=== PATIENT | male | born 1960 | race African-American/Black ===

== ENCOUNTER 2016-10-05 18:32 | Emergency (ER) | payer SELFPAY ==
[~2016-10-05] VITALS: Ht 177.8 cm; Wt 85.0 kg
[2016-10-05 18:32] VITALS: BP 108/73; PULSE 96; RESP 16; TEMP 97.8; O2SAT 98
[~2016-10-05 18:32] MED LIST: TOBRA.3%O OS; TYLE3 PO; Z.0.NO CURRENT MEDS
--- NOTE | 2016-10-05 18:48 | PD ---
HPI Chief Complaint: Back/ Neck Pain or Injury Time Seen by Provider: 18:48 Travel History International Travel<30 days: No Contact w/Intl Traveler<30days: No Traveled to known affect area: No History of Present Illness HPI 55-year-old male presents to the emergency department for evaluation of lower back pain radiating to bilateral legs that began this morning when he woke up. Patient denies any specific injury or trauma to his lower back. 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 States that he could've injured his back doing that at work last night. States that the pain is sharp and throbbing. Pain is aggravated with movement. Denies any alleviating factors. He has not taken anything for symptoms so far. Denies any fever, chills, nausea, vomiting, numbness or tingling, weakness, saddle anesthesia, bowel or bladder incontinence. He has had similar pain in the past. No other complaints. [facility] Past Medical History Medical History: Denies Significant Hx Diminished Hearing: No Social History Alcohol Use: Yes ( HOLIDAY) Tobacco Use: Yes (04/03 PPD) Substance Use: No Allergies-Medications (Allergen,Severity, Reaction): Coded Allergies: No Known Allergies (Verified , 10/05/16) Reported Meds & Prescriptions Reported Meds & Active Scripts Active No Active Prescriptions or Reported Medications Review of Systems Except as stated in HPI: all other systems reviewed are Neg Physical Exam Narrative GENERAL: Well-nourished and well-developed pleasant patient in no acute distress who is nontoxic appearing. SKIN: Warm and dry. HEAD: Normocephalic and atraumatic. EYES: No injection, drainage, or hyphema noted. PERRLA. EOMI. ENT: No nasal drainage noted. Oropharynx is clear. NECK: Supple and the trachea is midline. CARDIOVASCULAR: Regular rate and rhythm. RESPIRATORY: Breath sounds are equal bilaterally with no accessory muscle use, wheezing, rhonchi, or crackles. MUSCULOSKELETAL: No obvious deformities, swelling, cyanosis, or ecchymosis is present throughout the upper and lower extremities. Patient has full range of motion without any signs of neurovascular compromise. Strength 5/5 upper and lower extremities equal bilaterally. SLR negative. BACK: Mild bilateral paraspinal muscle tenderness to palpation. No obvious deformities, midline bony point tenderness, or crepitus noted throughout the thoracic and lumbar vertebrae. NEUROLOGICAL: Awake, alert, and oriented. Normal speech and gait. Cranial nerves are grossly intact. Data Data Last Documented VS Vital Signs Date Time Temp Pulse Resp B/P Pulse Ox O2 Delivery O2 Flow Rate FiO2 10/05/16 18:32 97.8 96 16 108/73 98 Orders Ketorolac Inj (Toradol Inj) (10/05/16 19:00) Acetamin-Hydrocod 325-5 Mg ([place] 5-325 (10/05/16 19:00) [facility] Medical Decision Making Medical Screen Exam Complete: Yes Emergency Medical Condition: Yes Differential Diagnosis Muscle strain versus muscle spasm versus discogenic pain versus sciatica versus lumbar radiculopathy Narrative Course 55-year-old male presents to the emergency room for evaluation of low back pain for 1 day. Patient is afebrile, vital signs are stable. No red flag signs or symptoms to indicate need for emergent imaging. Patient likely has a muscle strain secondary to lifting and bending. Patient is administered Toradol 60 mg IM and Lortab 5325 milligrams orally here in the emergency department. He'll be discharged with naproxen and Flexeril. Advised to follow-up as an outpatient with his PCP. Patient verbalizes understanding and agreement with treatment plan. Diagnosis Primary Impression: Acute low back pain Qualified Code: M54.5 - Acute bilateral low back pain, with sciatica presence unspecified Referrals: Primary Care Physician Patient Instructions: Acute Low Back Pain (ED), General Instructions Additional Instructions: Apply ice or heat to help alleviate symptoms. Perform gentle stretches. Take medications as prescribed with food and a full glass of water. Take Flexeril with alcohol or driving. Follow-up with your Primary Care Physician. Return to the ED for any acute worsening of symptoms. Med/Other Pt SpecificInfo: Prescription(s) given Scripts No Active Prescriptions or Reported Meds Disposition: 01 DISCHARGE HOME Condition: Radha Looney Oct 05, 2016 18:48
[2016-10-05] MEDS ORDERED: ACETAMINOPHEN/HYDROcodone 325 MG/5 MG TAB PO ONE (19:00)
[2016-10-05] MEDS ORDERED: KETOROLAC TROMETHAMINE 60 MG/2 ML (IM) VIAL IM ONE (19:00)
[2016-10-05] MEDS ORDERED: CYCL1TAB29 PO (19:01)
[2016-10-05] MEDS ORDERED: NAPR500T PO (19:01)
== END 2016-10-05 19:51 | disposition home or self-care (01) ==
LOC: NEPD 18:32
DX: M54.40 Lumbago with sciatica, unspecified side (principal); F17.210 Nicotine dependence, cigarettes, uncomplicated
CPT/HCPCS: 96372; 99284; J1885

== ENCOUNTER 2016-10-17 12:08 | Emergency (ER) | payer SELFPAY ==
[~2016-10-17] VITALS: Ht 177.8 cm; Wt 80.0 kg
[~2016-10-17 12:08] MED LIST changes: +CYCL1TAB29 PO; +NAPR500T PO; -TOBRA.3%O OS; -TYLE3 PO; -Z.0.NO CURRENT MEDS
[2016-10-17 12:18] VITALS: BP 110/76; PULSE 88; RESP 20; TEMP 98.7; O2SAT 97
--- NOTE | 2016-10-17 12:45 | PD ---
Physical Exam Time Seen by Provider: 12:44 Narrative 55 y/o male stepped in a hole and is having back/neck pain and bilateral leg pain. Vital signs reviewed. Seen at triage desk. Awaiting bed placement. Data Data Last Documented VS Vital Signs Date Time Temp Pulse Resp B/P Pulse Ox O2 Delivery O2 Flow Rate FiO2 10/17/16 12:18 98.7 88 20 110/76 97 Room Air MDM Medical Record Reviewed: Yes Supervised Visit with JENS: Michael Chatterjee Oct 17, 2016 12:45
--- NOTE | 2016-10-17 12:56 | PD ---
HPI . pain all over his body Chief Complaint: Back/ Neck Pain or Injury Time Seen by Provider: 12:56 Travel History International Travel<30 days: No Contact w/Intl Traveler<30days: No Traveled to known affect area: No History of Present Illness HPI 55-year-old male here with complaints of pain all over his body. Patient says that he was walking when he stepped inside of a sink hole and now reports pain in his lower back, neck and all over his body. He rates the pain as severe and says he needs relief immediately. He denies any head injury or loss of consciousness. He did not actually fall and only stepped awkwardly. He does have history of back issues, but this accident has caused his pain to worsen. PFSH Past Medical History Diminished Hearing: No Social History Alcohol Use: Yes () Tobacco Use: Yes (04/03 PPD) Substance Use: No Allergies-Medications (Allergen,Severity, Reaction): Coded Allergies: No Known Allergies (Verified , 10/05/16) Reported Meds & Prescriptions Reported Meds & Active Scripts Active Ibuprofen 800 Mg Tab 800 Mg PO TID Flexeril (Cyclobenzaprine HCl) 5 Mg Tab 5 Mg PO TID Naproxen 500 Mg Tab 500 Mg PO BID 7 Days Flexeril (Cyclobenzaprine HCl) 10 Mg Tab 10 Mg PO TID 5 Days Review of Systems General / Constitutional: No: Fever Eyes: No: Visual changes HENT: No: Headaches Cardiovascular: No: Chest Pain or Discomfort Respiratory: No: Shortness of Breath Gastrointestinal: No: Abdominal Pain Genitourinary: No: Dysuria Musculoskeletal: Positive: Pain (back/neck/all over) Skin: No Rash Neurologic: No: Weakness Psychiatric: No: Depression Endocrine: No: Polydipsia Hematologic/Lymphatic: No: Easy Bruising Physical Exam Narrative GENERAL: AAO x 3, no acute distress, Well-nourished, well-developed patient. SKIN: Warm and dry. No visible rashes or bruising. HEAD: Normocephalic and atraumatic. EYES: No scleral icterus. No injection or drainage. ENT: No nasal drainage noted. Mucous membranes pink. Airway patent. NECK: Supple, trachea midline. No JVD. CARDIOVASCULAR: Regular rate and rhythm without murmurs, gallops, or rubs. RESPIRATORY: Breath sounds equal bilaterally. No accessory muscle use. No rhonchi or rales. GASTROINTESTINAL: Abdomen soft, non-tender, nondistended. EXTREMITIES: No cyanosis or edema. ambulatory BACK: Nontender without obvious deformity. No CVA tenderness. NEURO: CN II-12 intact, market stall vendor strength normal b/l, UE and LE 5/5, no focal deficits PSYCH: AAO x 3, normal affect. Data Data Last Documented VS Vital Signs Date Time Temp Pulse Resp B/P Pulse Ox O2 Delivery O2 Flow Rate FiO2 10/17/16 12:18 98.7 88 20 110/76 97 Room Air Orders Orphenadrine Inj (Norflex Inj) (10/17/16 13:00) Ketorolac Inj (Toradol Inj) (10/17/16 13:00) MDM Medical Decision Making Medical Screen Exam Complete: Yes Emergency Medical Condition: Yes Medical Record Reviewed: Yes Differential Diagnosis acute on chronic back pain, muscle strain, malingering Narrative Course 55-year-old male here with complaints of aches and pains all over his body. I have done a complete examination and do not believe imaging is indicated. He does not meet criteria for C-spine imaging per nexus rules. I do not believe he needs imaging of his T or lumbar spine. I'll provide him with Toradol and Norflex here in the emergency department. He will need follow-up with his primary care provider. Patient tells me that he will be suing the county/city for this incident. Diagnosis Primary Impression: Acute low back pain Qualified Code: M54.5 - Acute midline low back pain without sciatica Patient Instructions: General Instructions Departure Forms: Tests/Procedures, Work Release Enter return to work date: Oct 18, 2016 Additional Instructions: Muscle relaxers can cause drowsiness. Do not drive, swim or operate heavy machinery while using these medications. Please return to emergency department if your symptoms return or worsen. Follow up with your primary care provider. Take medications as prescribed. Med/Other Pt SpecificInfo: Prescription(s) given Scripts Ibuprofen 800 Mg Qmb504 Mg PO TID #21 TAB Prov:Jesse Lang MD 10/17/16 Cyclobenzaprine (Flexeril)5 Mg Tab5 Mg PO TID #21 TAB Prov:Jesse Lang MD 10/17/16 Disposition: 01 DISCHARGE HOME Condition: Stable Meghna Del Castillo Oct 17, 2016 12:56
[2016-10-17] MEDS ORDERED: KETOROLAC TROMETHAMINE 60 MG/2 ML (IM) VIAL IM ONE (13:00)
[2016-10-17] MEDS ORDERED: ORPHENADRINE INJ 60 MG/2 ML AMP IM ONE (13:00)
[2016-10-17] MEDS ORDERED: CYCL5TAB PO (13:04)
[2016-10-17] MEDS ORDERED: IBUP800T23 PO (13:04)
== END 2016-10-17 13:42 | disposition home or self-care (01) ==
LOC: NEPK 12:08
DX: M54.5 Low back pain (principal); M54.2 Cervicalgia
CPT/HCPCS: 96372; 99284; J1885; J2360